=== PATIENT | female | born 1945 | race Caucasian/White ===

== ENCOUNTER 2022-11-29 11:50 | Day surgery (SDC) | payer MEDICARE ==
[~2022-11-29] VITALS: Ht 162.6 cm; Wt 69.1 kg
[2022-11-29] MEDS ORDERED: CENTRUM SILVER1 EAC2 PO (13:20)
[2022-11-29] MEDS ORDERED: ACET500 PO (13:21)
[2022-11-29 14:38] VITALS: BP 114/73
== END 2022-11-29 14:42 | disposition home or self-care (01) ==
LOC: ORSCSDS 11:50
PROVIDERS: Internal Medicine Gastroenterology
PROC: 0DBC8ZX Excision of Ileocecal Valve, Via Natural or Artificial Opening Endoscopic, Diagnostic (ICD-10-PCS; principal; 2022-11-29 13:15)
PROC: 0DBL8ZX Excision of Transverse Colon, Via Natural or Artificial Opening Endoscopic, Diagnostic (ICD-10-PCS; principal; 2022-11-29 13:15)
DX: R19.5 Other fecal abnormalities (principal); D12.3 Benign neoplasm of transverse colon; D12.0 Benign neoplasm of cecum; E78.5 Hyperlipidemia, unspecified
CPT/HCPCS: 88305; J2704; J7120